=== PATIENT | female | born 1960 | race Caucasian/White ===

== ENCOUNTER 2016-08-29 11:57 | Emergency (ER) | payer MEDICARE, SELFPAY ==
[2016-08-29] MEDS ORDERED: Sodium Chloride 0.9% 10 ML Syringe FLUSH PRN (12:24)
--- NOTE | 2016-08-29 12:43 | EDM.PDOC ---
ED HISTORY OF PRESENT ILLNESS - General Chief Complaint: Gastrointestinal Problem Stated Complaint: LIGHT HEADED, TIRED, CHEST PAIN Time Seen by Provider: 08/29/16 12:17 Source of Information: Reports: Patient History Limitations: Reports: No limitations - History of Present Illness INITIAL COMMENTS - FREE TEXT/NARRATIVE: Patient presents for evaluation and treatment of chest discomforts, dizziness and fatigue. Patient reports that yesterday she woke up feeling fine. She states that [place] She states that after the walk she began to experience dizziness, a pressure and burning sensation in her chest. She stated that she felt better this morning but continues to have the burning and pressure in her chest. She states that it is a 5/10 or maybe less. She states that she did try some TUMS but this did not help with the burning sensation in her chest. Patient also has noticed some nausea and lightheadedness. She denies any vomiting, shortness of breath or diaphoresis. Patient takes an 81 mg aspirin daily. She has no history of Mis or arrhythmias. Patient reports that she does get low blood sugar. She does not have a glucometer at home to check her blood sugar but states that she just knows when she gets a low blood sugar. Patient is on hydrocodone bid for chronic back pain. States she did not take the hydrocodone today or yesterday. - Related Data Allergies/ADRs: Allergies Allergy/AdvReac Type Severity Reaction Status Date / Time Sulfa (Sulfonamide Allergy Swelling Verified 08/29/16 12:21 Antibiotics) cashew Allergy Swelling Uncoded 08/29/16 12:21 Home Meds: Home Meds Aspirin [[place] Chewable] 81 mg PO DAILY 08/29/16 [History] Hydrocodone/Acetaminophen [Hydrocodon-Acetaminoph 7.5-325] 1 each PO TID [History] [place]-3 Fatty Acids [[place]-3] 100 mg PO DAILY 08/29/16 [History] Past Medical History HEENT History: Reports: Impaired vision, Sinusitis Cardiovascular History: Reports: Hypertension Respiratory History: Reports: Asthma - Past Surgical History GI Surgical History: Reports: Appendectomy Female Surgical History: Reports: Hysterectomy, Tubal ligation Musculoskeletal Surgical History: Reports: Shoulder surgery, Other (see below) Other Musculoskeletal Surgeries/Procedures:: back surgery, left knee surgery Social & Family History - Family History Family Medical History: Noncontributory - Tobacco Use Smoking Status *Q: Former Smoker Used Tobacco, but Quit: No - Caffeine Use Caffeine Use: Reports: Coffee, Soda - Recreational Drug Use Recreational Drug Use: No ED ROS GENERAL - Review of Systems Review Of Systems: See Below Constitutional: Reports: night sweats. Denies: fever, diaphoresis Respiratory: Denies: Shortness of Breath, Cough Cardiovascular: Reports: Chest pain (burning, pressure) GI/Abdominal: Reports: Nausea. Denies: Abdominal pain, Vomiting ED EXAM, GENERAL - Physical Exam Exam: See Below Exam Limited By: No limitations General Appearance: alert, WD/WN, no apparent distress Respiratory/Chest: no respiratory distress, lungs clear, normal breath sounds Cardiovascular: normal peripheral pulses, regular rate, rhythm, no murmur GI/Abdominal: normal bowel sounds, soft, non tender Neurological: alert, oriented, normal cognition Psychiatric: normal affect, normal mood Skin Exam: Warm, Dry, Normal color EKG INTERPRETATION EKG Date: 08/29/16 Time: 12:30 Rhythm: NSR Rate (beats/min): 62 [place]: normal P-wave: present QRS: normal ST-T: normal QT: normal EKG Interpretation Comments: NSR at 62 bpm. Reviewed by myself and Dr. Bentley Course - Vital Signs Last Recorded V/S: Last Vital Signs Temp 36.6 C 08/29/16 12:11 Pulse 62 08/29/16 14:25 Resp 12 08/29/16 14:25 BP 145/71 H 08/29/16 14:25 Pulse Ox 99 08/29/16 14:25 - Orders/Labs/Meds Orders: Active Orders 24 hr Category Date Time Status Cardiac Monitoring [RC] . DIRECTED Care 08/29/16 12:24 Active EKG 12 Lead [EKG Documentation Completion] [RC] STAT Care 08/29/16 12:24 Active Peripheral IV Care [RC] . DIRECTED Care 08/29/16 12:25 Active Sodium Chloride 0.9% [Saline Flush] Med 08/29/16 12:24 Active 10 ml FLUSH ASDIRECTED PRN Peripheral IV Insertion Adult [OM.PC] Routine Oth 08/29/16 12:24 Ordered Medication Orders Sodium Chloride (Saline Flush) 10 ml FLUSH ASDIRECTED PRN PRN Reason: Keep Vein Open Last Admin: 08/29/16 12:45 Dose: 10 ml Labs: Laboratory Tests 08/29/16 08/29/16 08/29/16 Range/Units 12:45 12:45 12:45 WBC 7.26 (3.98-10.04) K/mm3 RBC 4.88 (3.98-5.22) M/mm3 Hgb 14.8 (11.2-15.7) gm/L Hct 44.1 (34.1-44.9) % MCV 90.4 (79.4-94.8) fl MCH 30.3 (25.6-32.2) pg MCHC 33.6 (32.2-35.5) g/dl RDW Std Deviation 46.2 (36.4-46.3) fL Plt Count 227 (182-369) K/mm3 MPV 10.0 (9.4-12.3) fl Neut % (Auto) 66.5 (34.0-71.1) % Lymph % (Auto) 25.2 (19.3-51.7) % [place] % (Auto) 6.5 (4.7-12.5) % Eos % (Auto) 1.4 (0.7-5.8) Baso % (Auto) 0.3 (0.1-1.2) % Neut # (Auto) 4.83 (1.56-6.13) K/mm3 Lymph # (Auto) 1.83 (1.18-3.74) K/mm3 [place] # (Auto) 0.47 H (0.24-0.36) K/mm3 Eos # (Auto) 0.10 (0.04-0.36) K/mm3 Baso # (Auto) 0.02 (0.01-0.08) K/mm3 D-Dimer, Quantitative < 0.19 L (0.19-0.59) mg/L Sodium 142 (136-145) mEq/L Potassium 3.9 (3.5-5.1) mEq/L Chloride 105 (98-107) mEq/L Carbon Dioxide 28 (21-32) mEq/L Anion Gap 12.9 (5-15) BUN 13 (7-18) mg/dL Creatinine 1.0 (0.55-1.02) mg/dL Est Cr Clr Drug Dosing 61.81 mL/min Estimated GFR (MDRD) 58 (>60) mL/min BUN/Creatinine Ratio 13.0 L (14-18) Glucose 112 H (74-106) mg/dL Calcium 9.3 (8.5-10.1) mg/dL Total Bilirubin 0.4 (0.2-1.0) mg/dL AST 20 (15-37) U/L ALT 43 (14-59) U/L Alkaline Phosphatase 86 (46-116) U/L CK-MB (CK-2) < 0.5 (0-3.6) ng/ml Troponin I < 0.017 (0.00-0.056) ng/mL Total Protein 7.4 (6.4-8.2) g/dl Albumin 4.2 (3.4-5.0) g/dl Globulin 3.2 gm/dL Albumin/Globulin Ratio 1.3 (1-2) Lipase 141 (73-393) U/L Meds: Medications Generic Name Dose Route Start Last Admin Trade Name Freq PRN Reason Stop Dose Admin Sodium Chloride 10 ml 08/29/16 12:24 08/29/16 12:45 Saline Flush FLUSH 10 ml ASDIRECTED PRN Administration Keep Vein Open - Radiology Interpretation Free Text/Narrative:: Chest [address] Mclaughlin: 1. Slight scoliosis. Nothing acute is appreciated on frontal chest xray - Re-Assessments/Exams Free Text/Narrative Re-Assessment/Exam: 08/29/16 14:12 Labs returned. WBC is 7.26, hgb is 14.8 and plts are 227 d dimer is negative at <0.19 trop is within normal limits ate <0.017 CKMB is within normal limits at <0.5 Sodium is 142, potassium is 3.9 and chloride is 105. Anion gap is 12.9. Glucose is 112. Creatinine is 1.0 lipase is 141 Reviewed the labs, ekg and chest xray with the patient. Offered medication for the discomfort. Discussed trying a GI cocktail or something like toradol. Patient declined and would like to go home and try her hydrocodone. Discharge instructions as documented. Departure - Departure Time of Disposition: 14:13 Disposition: Home, Self-Care 01 Condition: good Clinical Impression: Atypical chest pain Instructions: Nonspecific Chest Pain Referrals: PCP,None [Primary Care Provider] - Marta Briscoe DO [Physician] - Forms: ED Department Discharge Additional Instructions: Continue with your current medications and plan of care. Establish with a primary care provider. Recommend Dr. Marta Briscoe or Niki Abreu. Call [phone] to schedule with one of them . Please return to the ER should your symptoms change or worsen. - My Orders Last 24 Hours: My Active Orders 08/29/16 12:24 Cardiac Monitoring [RC] . DIRECTED EKG 12 Lead [EKG Documentation Completion] [RC] STAT Sodium Chloride 0.9% [Saline Flush] 10 ml FLUSH ASDIRECTED PRN Peripheral IV Insertion Adult [OM.PC] Routine 08/29/16 12:25 Peripheral IV Care [RC] . DIRECTED - Assessment/Plan Last 24 Hours: My Active Orders 08/29/16 12:24 Cardiac Monitoring [RC] . DIRECTED EKG 12 Lead [EKG Documentation Completion] [RC] STAT Sodium Chloride 0.9% [Saline Flush] 10 ml FLUSH ASDIRECTED PRN Peripheral IV Insertion Adult [OM.PC] Routine 08/29/16 12:25 Peripheral IV Care [RC] . DIRECTED
--- NOTE | 2016-08-29 13:04 | CR ---
Chest: Frontal view of the chest was obtained. Comparison: No previous study. Heart size and mediastinum are normal. Lungs are clear. Minimal scoliosis is noted within the spine. Impression: 1. Slight scoliosis. Nothing acute is appreciated on frontal chest x-ray. Diagnostic code #1
[2016-08-29 14:31] VITALS: BP 145/71
== END 2016-08-29 14:25 | disposition home or self-care (01) ==
LOC: JD.ED 11:57
DX: R07.89 Other chest pain (principal); I10 Essential (primary) hypertension; J45.909 Unspecified asthma, uncomplicated; Z90.710 Acquired absence of both cervix and uterus; Z98.890 Other specified postprocedural states; Z79.82 Long term (current) use of aspirin; Z87.891 Personal history of nicotine dependence; Z88.2 Allergy status to sulfonamides
CPT/HCPCS: 36415; 71010; 80053; 82553; 83690; 84484; 85025; 85379; 93005; 99285; J7050; 99284